=== PATIENT | female | born 1990 | race Caucasian/White ===

== ENCOUNTER 2020-05-24 08:41 | Emergency (ER) | payer SELFPAY ==
[~2020-05-24] VITALS: Ht 165.1 cm; Wt 150.0 kg
[2020-05-24 08:56] VITALS: BP 130/85
--- NOTE | 2020-05-24 09:29 | PHYS DOC ---
Past History Past Medical History: Other Additional Past Medical Histor: [facility] Past Surgical History: Cholecystectomy, Alcohol Use: Occasionally General Adult EDM: Chief Complaint: FOOT INJURY PAIN HPI: HPI: 29-year-old female presents with right foot pain. The patient had a picnic bench with another person sitting on it dropped onto the top of her right foot last night. It is swollen and continues to be quite painful. Patient is able to walk but it hurts. She wants to make sure that is not broken. She denies any other injuries or complaints. No history of trauma or surgery to this foot. Review of Systems: Review of Systems: Constitutional: Denies fever or chills Eyes: Denies change in visual acuity HENT: Denies nasal congestion or sore throat Respiratory: Denies cough or shortness of breath Cardiovascular: Denies chest pain or edema GI: Denies abdominal pain, nausea, vomiting, bloody stools or diarrhea : Denies dysuria Musculoskeletal: Right foot pain Integument: Denies rash Neurologic: Denies headache, focal weakness or sensory changes Endocrine: Denies polyuria or polydipsia Lymphatic: Denies swollen glands Psychiatric: Denies depression or anxiety Allergies: Allergies: Allergies Coded Allergies Type Severity Reaction Last Updated Verified No Known Drug Allergies 05/24/20 No Physical Exam: PE: Constitutional: Well developed, well nourished, morbidly obese, no acute distress, non-toxic appearance. [] HENT: Normocephalic, atraumatic, bilateral external ears normal, oropharynx moist, no oral exudates, nose normal. [] Eyes: PERRLA, EOMI, conjunctiva normal, no discharge. [] Neck: Normal range of motion, no tenderness, supple, no stridor. [] Cardiovascular: Heart rate regular rhythm, no murmur [] Lungs & Thorax: Bilateral breath sounds clear to auscultation [] Abdomen: Bowel sounds normal, soft, no tenderness, no masses, no pulsatile masses. [] Skin: Warm, dry, no erythema, no rash. [] Back: No tenderness, no CVA tenderness. [] Extremities: Tenderness of the superior right foot, mild ecchymosis, moderate swelling. [] Neurologic: Alert and oriented X 3, normal motor function, normal sensory function, no focal deficits noted. [] Psychologic: Affect normal, judgement normal, mood normal. [] Current Patient Data: Vital Signs: Vital Signs Date Time Temp Pulse Resp B/P (MAP) Pulse Ox O2 Delivery O2 Flow Rate FiO2 05/24/20 08:56 98.1 88 16 130/85 (100) 98 EKG: EKG: [] Radiology/Procedures: Radiology/Procedures: [] Impressions: XR FOOT_RIGHT 3 VIEWS History: Reason: Direct blow heavy object to top of right foot, pain / Spl. Instructions: / History: Technique: 3 views right foot Comparison: None. Findings: Normal alignment. No fracture. Dorsal foot soft tissue swelling. Impression: 1. No acute osseous abnormality. 2. Dorsal foot soft tissue swelling. Electronically signed by: Demond Rice DO (05/24/2020 9:37 AM) [facility] DICTATED AND SIGNED BY: DEMOND RICE DO DATE: 05/24/20932 CC: EUGENIO XIE DO; PCP,NO ~MTH0 0 Heart Score: C/O Chest Pain: N/A Risk Factors: Risk Factors: DM, Current or recent (<one month) smoker, HTN, HLP, family history of CAD, obesity. Risk Scores: Score 0 - 3: 2.5% MACE over next 6 weeks - Discharge Home Score 4 - 6: 20.3% MACE over next 6 weeks - Admit for Clinical Observation Score 7 - 10: 72.7% MACE over next 6 weeks - Early Invasive Strategies Course & Med Decision Making: Course & Med Decision Making Pertinent Labs and Imaging studies reviewed. (See chart for details) The patient's x-ray is negative for fracture. She appears to just have a foot contusion. I have advised ibuprofen, rest, ice, and elevation. She is stable for discharge at this time. [] Dragon Disclaimer: Dragon Disclaimer: This electronic medical record was generated, in whole or in part, using a voice recognition dictation system. Departure Departure: Impression: Primary Impression: Contusion of right foot, initial encounter Disposition: HOME / SELF CARE / HOMELESS Condition: STABLE Referrals: PCP,NO (PCP) Patient Instructions: Foot Contusion, [id number] EUGENIO XIE DO May 24, 2020 09:29
--- NOTE | 2020-05-24 09:39 | RAD ---
XR FOOT_RIGHT 3 VIEWS History: Reason: Direct blow heavy object to top of right foot, pain / Spl. Instructions: / History: Technique: 3 views right foot Comparison: None. Findings: Normal alignment. No fracture. Dorsal foot soft tissue swelling. Impression: 1. No acute osseous abnormality. 2. Dorsal foot soft tissue swelling. Electronically signed by: Pb Langston DO (05/24/2020 9:37 AM) [facility]
== END 2020-05-24 09:55 | disposition home or self-care (01) ==
LOC: ER 08:41
DX: S90.31XA Contusion of right foot, initial encounter (principal); W22.8XXA Striking against or struck by other objects, initial encounter; Y93.89 Activity, other specified; Y92.89 Other specified places as the place of occurrence of the external cause; Y99.8 Other external cause status
CPT/HCPCS: 73630; 99283

== ENCOUNTER 2020-08-11 02:52 | Emergency (ER) | payer MEDICAID, OTHER ==
[~2020-08-11] VITALS: Ht 165.1 cm; Wt 144.0 kg
[2020-08-11] MEDS ORDERED: IV RINGERS SOLUTION,LACTATED 1,000 ML IV ONE (03:30)
[2020-08-11] MEDS ORDERED: ONDANSETRON PF 4 MG/2 ML VIAL. IVP ONE (03:30)
[2020-08-11 03:40] LABS: BASO # 0.1 x10^3/uL (0.0-0.2); BASO % 1 % (0-3); EOS # 0.2 x10^3/uL (0.0-0.7); EOS % 2 % (0-3); HEMATOCRIT 41.4 % (36.0-47.0); HEMOGLOBIN 13.8 g/dL (12.0-15.5); LYMPH # 3.1 x10^3/uL (1.0-4.8); LYMPH % 30 % (24-48); MEAN CORPUSCULAR HEMOGLOBIN 29 pg (25-35); MEAN CORPUSCULAR HGB CONC 33 g/dL (31-37); MEAN CORPUSCULAR VOLUME 87 fL (79-100); MONO % 10 % (0-9); NEUT % 57 % (31-73); PLATELET COUNT 230 x10^3/uL (140-400); RED BLOOD COUNT 4.74 x10^6/uL (3.50-5.40); RED CELL DISTRIBUTION WIDTH 13.7 % (11.5-14.5); WHITE BLOOD COUNT 10.5 x10^3/uL (4.0-11.0)
--- NOTE | 2020-08-11 03:42 | PHYS DOC ---
Past History Past Medical History: Other Additional Past Medical Histor: [facility] Past Surgical History: Cholecystectomy, Alcohol Use: Occasionally Adult General Chief Complaint Chief Complaint: SUICIDAL IDEATION HPI HPI Patient is a 29-year-old female with a past medical history significant for anxiety and depression who presents with a chief complaint of suicidal ideation and overdose. Patient endorses taking approximately 30,000 mg of acetaminophen and 25,000 mg of aspirin with 6500 mg of caffeine on top of some ethanol and cocaine. States she took all of these Tylenol and Excedrin pills at about 12-12 30 in an attempt to commit suicide after arguing with her sister who told her she should just kill herself. States that she also had the ethanol and cocaine about the same time. States that since then she had an episode of nonbloody nonbilious emesis and feels tired but currently has no other symptoms. Denies any recent traumas, travels, fevers, chest pain, shortness of breath, abdominal pain, dysuria, hematuria, blood in the stool or diarrhea. Denies any homicidal ideation or hallucinations. Review of Systems Review of Systems Review of systems otherwise unremarkable except noted in HPI Current Medications Current Medications Current Medications Medications (Trade) Dose Ordered Sig/Kelli Start Time Stop Time Status Last Admin Dose Admin Lactated Ringer's 1,000 ml @ 1,000 mls/hr 1X ONCE 08/11/20 03:30 08/11/20 04:29 08/11/20 03:20 1,000 MLS/HR Ondansetron HCl (Zofran) 4 mg 1X ONCE 08/11/20 03:30 08/11/20 03:31 DC 08/11/20 03:26 4 MG Allergies Allergies Allergies Coded Allergies Type Severity Reaction Last Updated Verified No Known Drug Allergies 05/24/20 No Physical Exam Physical Exam Constitutional: Well developed, well nourished, no acute distress, non-toxic appearance. [] HENT: Normocephalic, atraumatic, oropharynx moist Eyes: PERRLA, EOMI, conjunctiva normal, no discharge. [] Neck: Normal range of motion, no tenderness, supple, no stridor. [] Cardiovascular:Heart rate regular rhythm, no murmur [] Lungs & Thorax: Bilateral breath sounds clear to auscultation [] Abdomen: Bowel sounds normal, soft, no tenderness, no masses, no pulsatile masses. [] Skin: Warm, dry, no erythema, no rash. [] Back: no CVA tenderness. [] Extremities: No tenderness, no cyanosis, no clubbing, ROM intact, no edema. [] Neurologic: Alert and oriented X 3, normal motor function, normal sensory function, able to sit, stand and walk without issue, no focal deficits noted. [] Psychologic: Affect normal, judgment abnormal, mood depressed. [] Suicidal ideation. No homicidal ideation. No hallucinations. Current Patient Data Vital Signs Vital Signs Date Time Temp Pulse Resp B/P (MAP) Pulse Ox O2 Delivery O2 Flow Rate FiO2 08/11/20 03:33 83 26 176/111 (132) 98 Room Air 08/11/20 02:53 98.2 EKG EKG Initial EKG with a rate of 92, QRS of 88, QTc of 458, no STEMI [] Radiology/Procedures Radiology/Procedures [] Heart Score C/O Chest Pain: No Risk Factors: Risk Factors: DM, Current or recent (<one month) smoker, HTN, HLP, family history of CAD, obesity. Risk Scores: Risk Factors: DM, Current or recent (<one month) smoker, HTN, HLP, family history of CAD, obesity. Course & Med Decision Making Course & Med Decision Making Patient is a 29-year-old female who presents to the emergency department via EMS for suicidal ideation and attempted overdose with acetaminophen, salicylate, caffeine, ethanol and cocaine at approximately 12 to 12:30 PM Initial vital signs notable for hypertension. Physical exam noted above. Patient placed on the monitor with IV access established x2 and fluid resuscitation begun. Discussed patient with poison control. Laboratory analysis not concerning. Initial blood gas with a pH of 7.37, bicarb of 22.3, lactate of 1.89. Toxicology notable for acetaminophen level greater than 200, and salicylate level at 12.6. Given [place] nomogram, patient was started on N-acetylcysteine for acetaminophen toxicity. Discussed patient with Dr. Barnett for admission given acetaminophen overdose, suicidal ideation and need for repeat labs. Accepted to [facility]. Both first, second and third doses of N-acetylcysteine orders placed. Repeat salicylate and acetaminophen lab orders placed. Discussed transfer and admission with patient who verbalized understanding and accepted plan of transfer and admission to [facility] ICU. Dragon Disclaimer Dragon Disclaimer This electronic medical record was generated, in whole or in part, using a voice recognition dictation system. Departure Departure: Impression: Primary Impression: Suicidal ideation Additional Impressions: Overdose by acetaminophen Overdose of salicylate Alcohol abuse Cocaine abuse Disposition: 02 [facility]ORT TERM [facility] Admitting Physician: Krystian Barnett Other Referrals: PCP,NO (PCP) Problem Qualifiers BEE MORRISON MD Aug 11, 2020 03:42
[2020-08-11 03:48] LABS: CALCIUM 8.7 mg/dL (8.5-10.1); CREATININE 0.6 mg/dL (0.6-1.0); GFR 118.2; POTASSIUM 3.5 mmol/L (3.5-5.1)
[2020-08-11 03:57] LABS: ACETAMIN 203.3 mcg/mL (10-30); ALBUMIN 3.8 g/dL (3.4-5.0); ALBUMIN/GLOBULIN RATIO 1.3 (1.0-1.7); ETHANOL 28 mg/dL (0-10); SALIC 12.6 mg/dL (2.8-20.0); TOTAL BILIRUBIN 0.3 mg/dL (0.2-1.0); TOTAL PROTEIN 6.8 g/dL (6.4-8.2)
[2020-08-11] MEDS ORDERED: ACETYLCYSTEINE INJ 6 GM/30 ML VIAL IV ONE ×4 (04:14→05:17)
[2020-08-11] MEDS ORDERED: IV DEXTROSE 5% 250 ML IV ONE (04:15)
[2020-08-11] MEDS ORDERED: ACETYLCYSTEINE IV ONE ×3 (04:15→05:30)
[2020-08-11] MEDS ORDERED: ACETYLCYSTEINE INJ 15 GM in IV DEXTROSE 5% 200 ML IV ONE ×2 (04:15→04:30)
[2020-08-11] MEDS ORDERED: DEXTROSE 5% IV ONE ×3 (04:15→05:30)
[2020-08-11 04:25] LABS: BARBITURATES NEG (NEG); BENZODIAZEPINES NEG (NEG); CANNABINOIDS POS (NEG); COCAINE POS (NEG); METHADONE NEG (NEG); OPIATES NEG (NEG); PHENCYCLIDINE NEG (NEG)
[2020-08-11 04:26] LABS: AMPHETAMINE/METHAMPHETAMINE POS (NEG)
[2020-08-11 04:29] LABS: BILIRUBIN,URINE NEG (NEG); CLARITY,URINE CLEAR; COLOR,URINE STRAW; GLUCOSE,URINE NEG (NEG)
[2020-08-11 04:30] LABS: BACTERIA,URINE 0 /HPF (0-FEW); NITRITE,URINE NEG (NEG); RBC,URINE 0 /HPF (0-2); UROBILINOGEN,URINE 0.2 mg/dL (0.2 mg/dL); WBC,URINE 0 /HPF (0-4)
[2020-08-11] MEDS ORDERED: IV DEXTROSE 5% 500 ML ONE ×2 (05:04→05:06)
[2020-08-11 05:53] VITALS: BP 148/93
--- NOTE | 2020-08-11 06:39 | EKG ---
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
[2020-08-11] MEDS ORDERED: ACETYLCYSTEINE INJ 10 GM in IV DEXTROSE 5% 1,000 ML IV ONE ×2 (09:00→09:30)
== END 2020-08-11 05:39 | disposition short-term general hospital (02) ==
LOC: ER 02:52
DX: T39.1X2A Poisoning by 4-Aminophenol derivatives, intentional self-harm, initial encounter (principal); T39.012A Poisoning by aspirin, intentional self-harm, initial encounter; T43.612A Poisoning by caffeine, intentional self-harm, initial encounter; R45.851 Suicidal ideations; F14.10 Cocaine abuse, uncomplicated; F10.20 Alcohol dependence, uncomplicated; Z20.822 Contact with and (suspected) exposure to COVID-19; Y90.1 Blood alcohol level of 20-39 mg/100 ml; Y92.89 Other specified places as the place of occurrence of the external cause
CPT/HCPCS: 36415; 80053; 80307; 80329; 81001; 81025; 82803; 83690; 84484; 85025; 93005; 96361; 96365; 96375; 96376; 99285; C9803; G0480; J0132; J2405; J7120; U0003

== ENCOUNTER 2020-12-03 08:44 | Emergency (ER) | payer OTHER ==
[~2020-12-03] VITALS: Ht 167.6 cm; Wt 142.7 kg
--- NOTE | 2020-12-03 09:39 | PHYS DOC ---
Past History Past Medical History: Other Additional Past Medical Histor: ADHD Past Surgical History: Colectomy Additional Past Surgical Histo: C.SECTION X2 Alcohol Use: Occasionally Social History Narrative: Patient reports last use of marijuana x4 days General Adult EDM: Chief Complaint: ABDOMINAL PAIN HPI: HPI: 30-year-old female presents with right upper quadrant abdominal pain. Patient has been having pain in this area off and on for the last week. It is been more persistent today so she decided come in for evaluation. The pain is a cramping sensation of mild to moderate intensity. She is already had her gallbladder removed. The pain is similar to just before she had her gallbladder removed. She has been constipated lately but did have a bowel movement yesterday. It was hard. Patient denies nausea, vomiting, fever, chills. Review of Systems: Review of Systems: Constitutional: Denies fever or chills Eyes: Denies change in visual acuity HENT: Denies nasal congestion or sore throat Respiratory: Denies cough or shortness of breath Cardiovascular: Denies chest pain or edema GI: Right upper quadrant abdominal pain. Denies nausea, vomiting, bloody stools or diarrhea : Denies dysuria Musculoskeletal: Denies back pain or joint pain Integument: Denies rash Neurologic: Denies headache, focal weakness or sensory changes Endocrine: Denies polyuria or polydipsia Lymphatic: Denies swollen glands Psychiatric: Denies depression or anxiety Current Medications: Current Meds: Current Medications Medications (Trade) Dose Ordered Sig/Kelli Start Time Stop Time Status Last Admin Dose Admin Sodium Chloride 1,000 ml @ 1,000 mls/hr 1X ONCE 12/03/20 09:45 12/03/20 10:44 UNV Allergies: Allergies: Allergies Coded Allergies Type Severity Reaction Last Updated Verified No Known Drug Allergies 05/24/20 No Physical Exam: PE: Constitutional: Well developed, well nourished, morbidly obese, no acute distress, non-toxic appearance. [] HENT: Normocephalic, atraumatic, bilateral external ears normal, oropharynx moist, no oral exudates, nose normal. [] Eyes: PERRLA, EOMI, conjunctiva normal, no discharge. [] Neck: Normal range of motion, no tenderness, supple, no stridor. [] Cardiovascular:Heart rate regular rhythm, no murmur [] Lungs & Thorax: Bilateral breath sounds clear to auscultation [] Abdomen: Bowel sounds normal, soft, epigastric and right upper quadrant tenderness, no masses, no pulsatile masses. [] Skin: Warm, dry, no erythema, no rash. [] Back: No tenderness, no CVA tenderness. [] Extremities: No tenderness, no cyanosis, no clubbing, ROM intact, no edema. [] Neurologic: Alert and oriented X 3, normal motor function, normal sensory function, no focal deficits noted. [] Psychologic: Affect normal, judgement normal, mood normal. [] Current Patient Data: Vital Signs: Vital Signs Date Time Temp Pulse Resp B/P (MAP) Pulse Ox O2 Delivery O2 Flow Rate FiO2 12/03/20 09:14 98.1 88 18 132/90 (104) 100 Room Air EKG: EKG: [] Radiology/Procedures: Radiology/Procedures: [] Impressions: EXAM: Abdomen and pelvis CT with intravenous contrast. HISTORY: Right lower quadrant pain. TECHNIQUE: Computed tomographic images of the abdomen and pelvis were obtained following the administration of intravenous contrast. Multiplanar reformatting was performed. *One or more of the following individualized dose reduction techniques were utilized for this examination: 1. Automated exposure control. 2. Adjustment of the mA and/or kV according to patient size. 3. Use of iterative reconstruction technique. COMPARISON: None. FINDINGS: Evaluation of the lower thorax is unremarkable. There is mild hepatosplenomegaly. No focal hepatic lesion is seen. The gallbladder is absent. The pancreas, adrenal glands and kidneys are unremarkable. The appendix is partially obscured due to adjacent bowel loops and the right ovary. The visual ized portions of the appendix are unremarkable. There is no bowel obstruction. There is no abnormal bowel wall thickening. The bladder is unremarkable. There are multiple prominent bilateral ovarian follicles and follicular cysts, the largest of which is seen on the left measuring 2.4 cm. The aorta is normal in caliber. There is no lymphadenopathy. There is trace pelvic free fluid, within physiologic limits for a premenopausal female. There is no suspicious osseous finding. IMPRESSION: 1. Partially obscured appendix due to adjacent bowel loops and the right ovary. The visualized portions of the appendix are unremarkable. 2. Multiple prominent bilateral ovarian follicles and follicular cysts measuring up to 2.4 cm. 3. Mild hepatosplenomegaly. Electronically signed by: Bernadine Garcia MD (12/03/2020 10:02 AM) [id number] DICTATED AND SIGNED BY: BERNADINE GARCIA MD DATE: 12/03/2059 CC: EUGENIO XIE DO; PCP,NO ~MTH0 0 Heart Score: C/O Chest Pain: N/A Risk Factors: Risk Factors: DM, Current or recent (<one month) smoker, HTN, HLP, family history of CAD, obesity. Risk Scores: Score 0 - 3: 2.5% MACE over next 6 weeks - Discharge Home Score 4 - 6: 20.3% MACE over next 6 weeks - Admit for Clinical Observation Score 7 - 10: 72.7% MACE over next 6 weeks - Early Invasive Strategies Course & Med Decision Making: Course & Med Decision Making Pertinent Labs and Imaging studies reviewed. (See chart for details) The patient's labs are unremarkable. Her appendix was not completely visualized but appeared unremarkable. She does have prominent bilateral ovarian follicles and mild hepatosplenomegaly. No other significant findings on CT. See official read for more details. This does not appear to be life-threatening at this time. Patient is stable for discharge. She will follow-up with her primary care physician as needed. [] Ted Disclaimer: Drag[place] Disclaimer: This electronic medical record was generated, in whole or in part, using a voice recognition dictation system. Departure Departure: Impression: Primary Impression: Right upper quadrant pain Disposition: HOME / SELF CARE / HOMELESS Condition: STABLE Referrals: PCP,NO (PCP) Patient Instructions: Abdominal Pain, [id number] EUGENIO XIE DO Dec 03, 2020 09:39
[2020-12-03] MEDS ORDERED: IOHEXOL 300 MG/ML 75 ML VIAL. IV ONE (09:45)
[2020-12-03] MEDS ORDERED: IV NORMAL SALINE 1,000ML 1,000 ML IV ONE (09:45)
[2020-12-03 09:51] LABS: BASO # 0.1 x10^3/uL (0.0-0.2); BASO % 1 % (0-3); CALCIUM 8.8 mg/dL (8.5-10.1); CREATININE 0.8 mg/dL (0.6-1.0); EOS # 0.4 x10^3/uL (0.0-0.7); EOS % 4 % (0-3); GFR 84.2; HEMATOCRIT 42.8 % (36.0-47.0); HEMOGLOBIN 14.1 g/dL (12.0-15.5); LYMPH # 3.1 x10^3/uL (1.0-4.8); LYMPH % 35 % (24-48); MEAN CORPUSCULAR HEMOGLOBIN 28 pg (25-35); MEAN CORPUSCULAR HGB CONC 33 g/dL (31-37); MEAN CORPUSCULAR VOLUME 86 fL (79-100); MONO # 0.9 x10^3/uL (0.0-1.1); MONO % 10 % (0-9); NEUT # 4.5 x10^3uL (1.8-7.7); NEUT % 51 % (31-73); PLATELET COUNT 336 x10^3/uL (140-400); POTASSIUM 3.9 mmol/L (3.5-5.1); RED BLOOD COUNT 4.98 x10^6/uL (3.50-5.40); RED CELL DISTRIBUTION WIDTH 14.2 % (11.5-14.5); WHITE BLOOD COUNT 8.9 x10^3/uL (4.0-11.0)
[2020-12-03 09:57] LABS: ALBUMIN 3.5 g/dL (3.4-5.0); ALBUMIN/GLOBULIN RATIO 0.8 (1.0-1.7); TOTAL BILIRUBIN 0.2 mg/dL (0.2-1.0); TOTAL PROTEIN 7.7 g/dL (6.4-8.2)
--- NOTE | 2020-12-03 10:04 | RAD ---
EXAM: Abdomen and pelvis CT with intravenous contrast. HISTORY: Right lower quadrant pain. TECHNIQUE: Computed tomographic images of the abdomen and pelvis were obtained following the administ ration of intravenous contrast. Multiplanar reformatting was performed. *One or more of the following individualized dose reduction techniques were utilized for this examina tion: 1. Automated exposure control. 2. Adjustment of the mA and/or kV according to patient size. 3. Use of iterative reconstruction technique. COMPARISON: None. FINDINGS: Evaluation of the lower thorax is unremarkable. There is mild hepatosplenomegaly. No focal hepatic lesion is seen. The gallbladder is absent. The pancreas, adrenal glands and kidneys are unrem arkable. The appendix is partially obscured due to adjacent bowel loops and the right ovary. The visu alized portions of the appendix are unremarkable. There is no bowel obstruction. There is no abnormal bowel wall thickening. The bladder is unremarkabl e. There are multiple prominent bilateral ovarian follicles and follicular cysts, the largest of whic h is seen on the left measuring 2.4 cm. The aorta is normal in caliber. There is no lymphadenopathy. There is trace pelvic free fluid, within physiologic limits for a premenopausal female. There is no s uspicious osseous finding. IMPRESSION: 1. Partially obscured appendix due to adjacent bowel loops and the right ovary. The visualized portio ns of the appendix are unremarkable. 2. Multiple prominent bilateral ovarian follicles and follicular cysts measuring up to 2.4 cm. 3. Mild hepatosplenomegaly. Electronically signed by: Bernadine Garcia MD (12/03/2020 10:02 AM) [id number]
[2020-12-03 10:28] LABS: BACTERIA,URINE FEW /HPF (0-FEW); BILIRUBIN,URINE NEG (NEG); CLARITY,URINE HAZY; COLOR,URINE YELLOW; GLUCOSE,URINE NEG (NEG); NITRITE,URINE NEG (NEG); SQUAMOUS EPITHELIAL CELL,UR MANY /LPF; UROBILINOGEN,URINE 0.2 mg/dL (0.2 mg/dL)
[2020-12-03 11:20] VITALS: BP 123/66
== END 2020-12-03 11:18 | disposition home or self-care (01) ==
LOC: ER 08:44
DX: R10.11 Right upper quadrant pain (principal)
CPT/HCPCS: 36415; 74177; 80053; 81001; 85025; 87086; 96360; 99285; J7030; Q9967